=== PATIENT | male | born 1955 | race Caucasian/White ===

== ENCOUNTER 2017-11-24 18:38 | Emergency (ER) | payer MEDICARE, MEDICAID ==
[~2017-11-24] VITALS: Ht 172.7 cm; Wt 98.1 kg
[2017-11-24 19:12] LABS: BASOPHILS # (AUTO) 0.04 x10^3/uL (0-0.1); BASOPHILS % (AUTO) 1 % (0-1); EOSINOPHILS # (AUTO) 0.14 x10^3/uL (0-0.4); EOSINOPHILS % (AUTO) 2 % (1-7); LYMPHOCYTES # (AUTO) 2.28 x10^3/uL (1-3.4); LYMPHOCYTES % (AUTO) 29 % (22-44); MD NO; MEAN CORPUSCULAR HEMOGLOBIN 29.8 pg (27.5-34.5); MEAN CORPUSCULAR HGB CONC 33.8 g/dL (33.2-36.2); MEAN CORPUSCULAR VOLUME 88.1 fL (81-97); MONOCYTES # (AUTO) 0.58 x10^3/uL (0.2-0.8); MONOCYTES % (AUTO) 7 % (2-9); NEUTROPHILS # (AUTO) 4.87 x10^3/uL (1.8-6.8); NEUTROPHILS % (AUTO) 62 % (42-75); PLATELET COUNT 279 x10^3/uL (130-400); RED CELL DISTRIBUTION WIDTH 13.8 % (9.4-14.8)
[2017-11-24 19:21] LABS: ALBUMIN 4.1 g/dL (3.4-5.0); ANION GAP 6 mmol/L (5-15); CALCIUM 8.9 mg/dL (8.5-10.1); CHLORIDE 104 mmol/L (98-107); CREATININE 0.88 mg/dL (0.7-1.3)
[2017-11-24 19:31] LABS: ALANINE AMINOTRANSFERASE 46 U/L (12-78); ALKALINE PHOSPHATASE 101 U/L (45-117); BILIRUBIN,TOTAL 0.6 mg/dL (0.2-1.0); TOTAL PROTEIN 7.7 g/dL (6.4-8.2)
[2017-11-24 21:32] VITALS: BP 149/91
== END 2017-11-24 21:33 | disposition home or self-care (01) ==
LOC: ED 21:27
DX: I10 Essential (primary) hypertension (principal)
CPT/HCPCS: 36415; 80053; 80307; 85025; 93005; 99285; G0479

== ENCOUNTER 2018-02-05 17:06 | Emergency (ER) | payer MEDICARE, MEDICAID ==
[~2018-02-05] VITALS: Ht 172.7 cm; Wt 85.0 kg
[2018-02-05 17:14] VITALS: BP 139/74
== END 2018-02-05 17:46 | disposition home or self-care (01) ==
LOC: ED 17:40
DX: F41.1 Generalized anxiety disorder (principal); F32.9 Major depressive disorder, single episode, unspecified
CPT/HCPCS: 99284

== ENCOUNTER 2018-02-25 17:42 | Emergency (ER) | payer MEDICARE, MEDICAID ==
[~2018-02-25] VITALS: Ht 172.7 cm; Wt 84.8 kg
[2018-02-25 17:44] VITALS: BP 146/82
== END 2018-02-25 19:14 | disposition home or self-care (01) ==
LOC: ED 18:50
DX: R60.0 Localized edema (principal); L55.0 Sunburn of first degree; J44.9 Chronic obstructive pulmonary disease, unspecified; I25.10 Atherosclerotic heart disease of native coronary artery without angina pectoris; Z59.0 Homelessness
CPT/HCPCS: 99283

== ENCOUNTER 2018-04-26 04:12 | Emergency (ER) | payer MEDICARE, MEDICAID ==
[~2018-04-26] VITALS: Ht 172.7 cm; Wt 85.3 kg
[2018-04-26 04:20] VITALS: BP 154/94
[2018-04-26] MEDS ORDERED: ASPIRIN 81 MG TABLET CHEW ONE (04:51)
[2018-04-26] MEDS: ASPIRIN 81 MG TABLET CHEW PO ONE ×2 (04:53→04:54)
== END 2018-04-26 04:56 | disposition left against medical advice (07) ==
LOC: ED 04:45
DX: R00.2 Palpitations (principal); J44.9 Chronic obstructive pulmonary disease, unspecified; I25.10 Atherosclerotic heart disease of native coronary artery without angina pectoris; I11.9 Hypertensive heart disease without heart failure
CPT/HCPCS: 93005; 99283

== ENCOUNTER 2018-11-14 11:57 | Emergency (ER) | payer MEDICARE, MEDICAID ==
[~2018-11-14] VITALS: Ht 172.7 cm; Wt 88.0 kg
--- NOTE | 2018-11-14 12:11 | NUR ---
THIS PT ARRIVED WITH [facility] TO BE PLACED ON A LEGAL HOLD. PT AT [facility] STATED THAT HE WAS TIRED OF LIVING THERE AND RATHER . PT STATED "I'LL WALK IN FRONT OF A SEMI, I JUST FELL THE SEEMA COMING ON. IT ALWAYS COMES ON IN NOVEMBER BUT ITS EARLY THIS YEAR. I WOULD'NT MIND BEING ON A HOLD FOR A FEW DAYS OR BACK TO [facility]. THE STAVE MILL HAND AT [facility] TOOK REALLY GOOD CARE OF ME AND THATS BETTER THAN BEING ON THE STREET" PT ON ARRIVAL IS COMPELTELY COPERATIVE AND FOLLWOING COMMANDS. NO MANIC EPISODE NOTED AT THIS TIME. PT IS A/O X4 AND VSS AND NADN. PT PLACED IN SAFE ROOM. PT HAD 3 BAGS PLACED IN ED LOCKER (2 WHITE BAGS AND 1 LARGE BLACK BAG). PT IN GOWN ONLY. UA SENT TO LAB FOR DEBBIE. AWAITING FURTHER ORDERS.
--- NOTE | 2018-11-14 12:15 | NUR ---
CRISTOFER JJ TO BEDSIDE.
[2018-11-14 12:18] LABS: MICROSCOPIC NOT IND
[2018-11-14 12:31] LABS: CULTURE INDICATED? NO
[2018-11-14 12:38] LABS: AMPHETAMINE SCREEN, URINE Negative (Negative); BARBITURATE SCREEN, URINE Negative (Negative); BENZODIAZEPINE SCREEN, URINE Negative (Negative); CANNABINOID SCREEN, URINE Negative (Negative); COCAINE SCREEN, URINE Negative (Negative); METHADONE SCREEN, URINE Negative (Negative); OPIATE SCREEN, URINE Negative (Negative)
--- NOTE | 2018-11-14 12:39 | NUR ---
Warm blanket provided to pt.
[2018-11-14 12:47] LABS: BASOPHILS # (AUTO) 0.04 x10^3/uL (0-0.1); BASOPHILS % (AUTO) 0 % (0-1); EOSINOPHILS # (AUTO) 0.32 x10^3/uL (0-0.4); EOSINOPHILS % (AUTO) 4 % (1-7); LYMPHOCYTES # (AUTO) 2.18 x10^3/uL (1-3.4); LYMPHOCYTES % (AUTO) 24 % (22-44); MD NO; MEAN CORPUSCULAR HEMOGLOBIN 29.7 pg (27.5-34.5); MEAN CORPUSCULAR HGB CONC 33.5 g/dL (33.2-36.2); MEAN CORPUSCULAR VOLUME 88.6 fL (81-97); MEAN PLATELET VOLUME 7.2 fL (7.4-10.4); MONOCYTES # (AUTO) 0.38 x10^3/uL (0.2-0.8); MONOCYTES % (AUTO) 4 % (2-9); NEUTROPHILS # (AUTO) 6.35 x10^3/uL (1.8-6.8); NEUTROPHILS % (AUTO) 69 % (42-75); PLATELET COUNT 307 x10^3/uL (130-400); RED BLOOD COUNT 5.27 x10^6/uL (4.38-5.82); RED CELL DISTRIBUTION WIDTH 13.5 % (9.4-14.8)
[2018-11-14 12:58] LABS: ALBUMIN 3.6 g/dL (3.4-5.0); ANION GAP 6 mmol/L (5-15); CALCIUM 8.2 mg/dL (8.5-10.1); CHLORIDE 105 mmol/L (98-107)
[2018-11-14 13:02] LABS: ACETAMINOPHEN < 2 mcg/mL (10-30); ALANINE AMINOTRANSFERASE 26 U/L (12-78); ALKALINE PHOSPHATASE 110 U/L (45-117); BILIRUBIN,TOTAL 0.3 mg/dL (0.2-1.0); CREATININE 0.93 mg/dL (0.7-1.3); SALICYLATE LEVEL < 1.7 mg/dL (2.8-20.0); TOTAL PROTEIN 6.7 g/dL (6.4-8.2)
--- NOTE | 2018-11-14 13:35 | NUR ---
Latanya, Pt awake and talking to sitter. Pt reports no distress. good cap refill and equal respirations. Pt has sitter outside room for continous monitoring.
--- NOTE | 2018-11-14 14:28 | NUR ---
SPOKE WITH SOC DR. MILLER.
--- NOTE | 2018-11-14 14:35 | NUR ---
MEAL TRAY ORDERED FOR PATIENT.
[2018-11-14 14:56] VITALS: BP 148/94
--- NOTE | 2018-11-14 15:56 | NUR ---
Patient/Caregiver given discharge instructions and they have confirmed that they understand the instructions. Patient ambulatory with steady gait.
== END 2018-11-14 16:13 | disposition home or self-care (01) ==
LOC: ED 12:40
DX: F31.32 Bipolar disorder, current episode depressed, moderate (principal); F41.1 Generalized anxiety disorder; I10 Essential (primary) hypertension; I25.10 Atherosclerotic heart disease of native coronary artery without angina pectoris; J44.9 Chronic obstructive pulmonary disease, unspecified
CPT/HCPCS: 36415; 80053; 80307; 80329; 81003; 85025; 99284; G0480